=== PATIENT | female | born 1975 | race Caucasian/White ===

== ENCOUNTER 2017-05-04 17:51 | Emergency (ER) | payer SELFPAY ==
[2017-05-04 18:23] LABS: URINE HCG POC HCG NEGATIVE (Negative)
[2017-05-04] MEDS: HYDROcodone/APAP 5/325MG 1 TAB TABLET PO (18:30)
== END 2017-05-04 19:23 | disposition home or self-care (01) ==
LOC: ER 17:51
DX: S39.012A Strain of muscle, fascia and tendon of lower back, initial encounter (principal); W18.40XA Slipping, tripping and stumbling without falling, unspecified, initial encounter; Y93.89 Activity, other specified; Y92.89 Other specified places as the place of occurrence of the external cause; Y99.8 Other external cause status
CPT/HCPCS: 72100; 81025; 99284

== ENCOUNTER 2017-05-30 19:20 | Emergency (ER) | payer SELFPAY ==
[2017-05-30 20:34] LABS: BILIRUBIN,URINE NEGATIVE (NEG); CLARITY,URINE CLEAR; COLOR,URINE YELLOW; GLUCOSE,URINE NEGATIVE (NEG); NITRITE,URINE NEGATIVE (NEG); PH,URINE 5.5; PROTEIN,URINE NEGATIVE (NEG-TRACE); UROBILINOGEN,URINE 0.2 mg/dL (0.2 mg/dL)
[2017-05-30 20:46] LABS: BACTERIA,URINE 0 /HPF (0-FEW); SQUAMOUS EPITHELIAL CELL,UR MOD /LPF
== END 2017-05-30 20:55 | disposition home or self-care (01) ==
LOC: ER 20:55
DX: S30.0XXA Contusion of lower back and pelvis, initial encounter (principal); Z90.49 Acquired absence of other specified parts of digestive tract; W18.39XA Other fall on same level, initial encounter; Y93.89 Activity, other specified; Y92.89 Other specified places as the place of occurrence of the external cause; Y99.8 Other external cause status
CPT/HCPCS: 72110; 81001; 99285

== ENCOUNTER 2017-06-09 20:11 | Emergency (ER) | payer SELFPAY | END 2017-06-09 21:15 | disposition home or self-care (01) | LOC: ER 20:11 | DX: K02.9 Dental caries, unspecified (principal) | CPT/HCPCS: 99283 ==

== ENCOUNTER 2017-07-10 07:13 | Emergency (ER) | payer SELFPAY | END 2017-07-10 08:03 | disposition home or self-care (01) | LOC: ER 07:13 | DX: K02.9 Dental caries, unspecified (principal); Z90.49 Acquired absence of other specified parts of digestive tract | CPT/HCPCS: 99283 ==

== ENCOUNTER 2017-07-27 13:52 | Emergency (ER) | payer OTHER | END 2017-07-27 14:11 | disposition home or self-care (01) | LOC: ER 13:52 | DX: K02.9 Dental caries, unspecified (principal); K08.89 Other specified disorders of teeth and supporting structures | CPT/HCPCS: 99283 ==

== ENCOUNTER 2019-08-05 16:02 | Emergency (ER) | payer SELFPAY ==
[~2019-08-05] VITALS: Ht 157.5 cm; Wt 80.0 kg
[~2019-08-05 16:02] MED LIST: AMOX500C PO; CYCL10TA2 PO; HYDR-3164 PO; IBUP-1060 PO
[2019-08-05 16:33] VITALS: BP 148/92
[2019-08-05] MEDS ORDERED: CLIN150C14 PO (17:17)
--- NOTE | 2019-08-05 17:18 | PHYS DOC ---
Past Medical History Past Medical History: No Pertinent History Past Surgical History: Cholecystectomy Smoking Status: Never Smoker Alcohol Use: None Drug Use: None General Adult EDM: Chief Complaint: DENTAL PROBLEM HPI: HPI: Patient is a 44 year old female who presents to the emergency department with complaints of left lower dental pain, bleeding gums, and pus coming from her gingiva patient states that the symptoms have been ongoing for about 2 weeks. She denies any injury. Patient states that she had been in the process of having her teeth removed but due to the COVID-19 pandemic she lost her dental insurance. She denies any fever, sore throat, cough, shortness of breath, nause a, vomiting, rash, ear pain, abdominal pain, or sore throat. She currently rates her discomfort a 10 out of 10 on the pain scale, she denies any alleviating factors. Review of Systems: Review of Systems: Constitutional: Denies fever or chills. [] Eyes: Denies change in visual acuity. [] HENT: Denies nasal congestion or sore throat., See HPI [] Respiratory: Denies cough or shortness of breath. [] Cardiovascular: Denies chest pain or edema. [] GI: Denies abdominal pain, nausea, vomiting, or diarrhea. [] Musculoskeletal: Denies back pain or joint pain. [] Integument: Denies rash. [] Neurologic: Denies headache Psychiatric: Denies depression or anxiety. [] Heart Score: Risk Factors: Risk Factors: DM, Current or recent (<one month) smoker, HTN, HLP, family history of CAD, obesity. Risk Scores: Score 0 - 3: 2.5% MACE over next 6 weeks - Discharge Home Score 4 - 6: 20.3% MACE over next 6 weeks - Admit for Clinical Observation Score 7 - 10: 72.7% MACE over next 6 weeks - Early Invasive Strategies Allergies: Allergies: Allergies Coded Allergies Type Severity Reaction Last Updated Verified No Known Drug Allergies 05/04/17 No Physical Exam: PE: Constitutional: Well developed, well nourished, no acute distress, non-toxic appearance. [] HENT: Normocephalic, atraumatic, bilateral external ears normal, oropharynx moist, no oral exudates, nose normal; mild facial swelling noted to the lower left mandible, visible dental abscess in the lower left quadrant that is draining bloody yellow pus, gingival erythema and edema, several missing teeth. [] Eyes: PERRLA, EOMI, conjunctiva normal, no discharge. [] Neck: Normal range of motion, no stridor. [] Cardiovascular:Heart rate regular rhythm Lungs & Thorax: Respirations even and unlabored, no retractions, no respiratory distress Skin: Warm, dry, no erythema, no rash. [] Extremities: No cyanosis, ROM intact, no edema. [] Neurologic: Alert and oriented X 3, no focal deficits noted. [] Psychologic: Affect normal, judgement normal, mood normal. [] Current Patient Data: Vital Signs: Vital Signs Date Time Temp Pulse Resp B/P (MAP) Pulse Ox O2 Delivery O2 Flow Rate FiO2 08/05/19 16:33 98.2 114 20 148/92 (110) 96 Room Air 98.2 EKG: EKG: [] Radiology/Procedures: Radiology/Procedures: [] Course & Med Decision Making: Course & Med Decision Making Pertinent Labs and Imaging studies reviewed. (See chart for details) [] Dragon Disclaimer: Dragon Disclaimer: This electronic medical record was generated, in whole or in part, using a voice recognition dictation system. Departure Departure Impression: Primary Impression: Abscess, dental Disposition: HOME, SELF-CARE Condition: STABLE Referrals: NO PCP (PCP) Patient Instructions: Dental Abscess Additional Instructions: Fill prescription(s) and use as directed. Follow up with dentist using the referral list provided. Return to the ER if symptoms worsen. Scripts Clindamycin Hcl (CLINDAMYCIN HCL) 150 Mg Capsule 300 MG PO TID for 7 Days, #42 CAP 0 Refills Prov: TA LIRA APRN 08/05/19 Justicifation of Admission Dx: Justifications for Admission: Justification of Admission Dx: N/A TA LIRA [employer] Aug 05, 2019 17:18
== END 2019-08-05 17:49 | disposition home or self-care (01) ==
LOC: ER 16:02
DX: K04.7 Periapical abscess without sinus (principal); R60.0 Localized edema; L53.9 Erythematous condition, unspecified; Z90.49 Acquired absence of other specified parts of digestive tract
CPT/HCPCS: 99283